=== PATIENT | male | born 1970 | race Caucasian/White ===

== ENCOUNTER 2024-07-22 10:41 | Emergency (ER) | payer SELFPAY ==
[2024-07-22] MEDS ORDERED: NA CHLORIDE 0.9% 1,000 ML ONE (12:09)
[2024-07-22 12:15] LABS: Absolute Eosinophils 0.1 K/uL (0-0.5); Absolute Lymphocytes (CBC) 1.6 K/uL (0.7-4.9); Absolute Monocytes 0.6 K/uL (0.1-1.3); Basophils % 0.3 % (0-1.3); Eosinophils % 0.8 % (0-4.4); Hematocrit 44.5 % (39.6-49.0); Hemoglobin 15.6 g/dL (13.6-17.9); Lymphocytes % 22.1 % (15.3-44.8); MCH 30.8 pg (27.0-35.0); MCV 87.9 fL (80-100); MPV 9.2 fL (7.6-11.3); Monocytes % 7.9 % (3.3-12.3); Neutrophils % 68.9 % (41.7-73.7); Nucleated Red Blood Cells % 0.1 % (0-0); Platelets 253 thou/uL (152-406); RBC Red Blood Cell Count 5.07 M/uL (4.33-5.43); Red Cell Distribution Width 13.2 % (12.1-15.2)
[2024-07-22 12:37] LABS: ALT/SGPT 30 U/L (16-61); Albumin 3.6 g/dL (3.4-5.0); Albumin/Globulin Ratio 0.9 (1.1-1.8); Alkaline Phosphatase 73 U/L (45-117); Anion Gap 16.2 mEq/L (5.0-15.0); BUN Blood Urea Nitrogen 26 mg/dL (7-18); Bicarbonate 22 mEq/L (21-32); Bilirubin Total 0.5 mg/dL (0.2-1.0); Globulin 3.8 g/dL (2.3-3.5); Glomerular Filtration Rate 88 ml/min (=/>90); Lipase 63 U/L (13-75); Potassium 4.2 mEq/L (3.5-5.1); Protein, Total 7.4 g/dL (6.4-8.2); Sodium Level 128 mEq/L (136-145)
[2024-07-22 12:38] LABS: AST/SGOT < 10 U/L (15-37)
[2024-07-22 12:40] LABS: Glucose Level 479 mg/dL (74-106)
[2024-07-22 13:19] LABS: Troponin High Sensitivity 10.4 pg/mL (<58.9)
[2024-07-22 13:22] LABS: Specific Gravity > 1.030 (1.005-1.030); Sqamous Epithelial None Seen /HPF (None Seen); Urine Bacteria None Seen /HPF (<20); Urine Bilirubin NEGATIVE (Negative); Urine Blood Negative (Negative); Urine Clarity Clear (Clear); Urine Color Colorless (Yellow); Urine Glucose 4+ (Over) (Negative); Urine Ketones 2+ (Negative); Urine Micro Reflex YN NO BILL MICROSCOPIC; Urine Mucus Slight /HPF (None Seen); Urine Nitrite NEGATIVE (Negative); Urine Protein NEGATIVE (Negative); Urine RBC <5 /HPF (None Seen); Urine Urobilinogen Normal (Normal); Urine WBC <5 /HPF (<5)
[2024-07-22] MEDS ORDERED: INSULIN REGULAR (HUMAN) 100 UNIT/ML ONE (13:28)
--- NOTE | 2024-07-22 15:00 | EDPHYS ---
Physician Documentation [facility] Name: Ike Garcia Age: 54 yrs Sex: Male : 1970 Arrival Date: 07/22/2024 Time: 10:41 Bed 2 Private MD: ED Physician Huber Deleon HPI: 07/22 11:57 This 54 yrs old Male presents to ER via Ambulatory with complaints of Weakness, sp3 Numbness - both feet. 11:57 54-year-old male with history of diabetes, hypertension, hyperlipidemia presents to the [facility] ED with generalized weakness and concerns about his blood sugar secondary to him stopping taking his medications because "they were bringing him down". Patient sees Dr. De La Paz as PCP. Patient states that he wants to get back on his medications. He denies any fever, headache, neck pain, chest pain, shortness of breath, abdominal pain, vomiting, diarrhea, or any other signs or symptoms on ROS at this time. He does endorse bilateral lower extremity numbness off and on which she has had for quite some time. No new symptoms from that standpoint.. Historical: - Allergies: 11:02 NKDA; iw - Home Meds: 11:02 None [Active]; iw - PMHx: 11:02 Hyperlipidemia; Diabetes - NIDDM; Hypertension; iw - PSHx: 11:02 None; iw - Immunization history:: Adult Immunizations not up to date. - Infectious Disease History:: Denies. - Social history:: Smoking status: Patient/guardian denies using tobacco, but has a distant history of tobacco abuse. ROS: 12:01 Constitutional: Negative for fever, chills, and weight loss, Eyes: Negative for injury, sp3 pain, redness, and discharge, ENT: Negative for injury, pain, and discharge, Neck: Negative for injury, pain, and swelling, Cardiovascular: Negative for chest pain, palpitations, and edema, Respiratory: Negative for shortness of breath, cough, wheezing, and pleuritic chest pain, Abdomen/GI: Negative for abdominal pain, nausea, vomiting, diarrhea, and constipation, Back: Negative for injury and pain, MS/Extremity: Negative for injury and deformity, Skin: Negative for injury, rash, and discoloration, Neuro: Negative for headache, weakness, numbness, tingling, and seizure, Psych: Negative for depression, anxiety, suicide ideation, homicidal ideation, and hallucinations, Allergy/Immunology: Negative for hives, rash, and allergies, Hematologic/Lymphatic: Negative for swollen nodes, abnormal bleeding, and unusual bruising, 12:01 All other systems are negative, Exam: 12:01 Constitutional: This is a well developed, well nourished patient who is awake, alert, sp3 and in no acute distress. Head/Face: Normocephalic, atraumatic. Eyes: Pupils equal round and reactive to light, extra-ocular motions intact. Lids and lashes normal. Conjunctiva and sclera are non-icteric and not injected. Cornea within normal limits. Periorbital areas with no swelling, redness, or edema. Neck: Trachea midline, no thyromegaly or masses palpated, and no cervical lymphadenopathy. Supple, full range of motion without nuchal rigidity, or vertebral point tenderness. No Meningismus. Chest/axilla: Normal chest wall appearance and motion. Nontender with no deformity. No lesions are appreciated. Cardiovascular: Regular rate and rhythm with a normal S1 and S2. No gallops, murmurs, or rubs. Normal PMI, no JVD. No pulse deficits. Respiratory: Lungs have equal breath sounds bilaterally, clear to auscultation and percussion. No rales, rhonchi or wheezes noted. No increased work of breathing, no retractions or nasal flaring. Abdomen/GI: Soft, non-tender, with normal bowel sounds. No distension or tympany. No guarding or rebound. No evidence of tenderness throughout. Back: No spinal tenderness. No costovertebral tenderness. Full range of motion. Skin: Warm, dry with normal turgor. Normal color with no rashes, no lesions, and no evidence of cellulitis. MS/ Extremity: Pulses equal, no cyanosis. Neurovascular intact. Full, normal range of motion. Neuro: Awake and alert, GCS 15, oriented to person, place, time, and situation. Cranial nerves II-XII grossly intact. Motor strength 5/5 in all extremities. Sensory grossly intact. Cerebellar exam normal. Normal gait. Psych: Awake, alert, with orientation to person, place and time. Behavior, mood, and affect are within normal limits. 15:01 ECG was reviewed by the Attending Physician. EKG demonstrates normal sinus rhythm at 70 sp3 bpm with normal intervals, PACs and sinus arrhythmia with nonspecific ST/T changes without evidence of acute ischemia. Vital Signs: 11:00 BP 166 / 92; Pulse 78; Resp 16; Temp 98.7; Pulse Ox 100% on R/A; Weight 84.37 kg; iw Height 6 ft. 0 in. ; 12:16 BP 122 / 86; Pulse 65; Resp 17; Pulse Ox 99% on R/A; ap3 15:18 BP 120 / 85; Pulse 78; Resp 17; Pulse Ox 96% ; ap3 11:00 Body Mass Index 25.23 (84.37 kg, 182.88 cm) iw MDM: 11:22 Medical Screening Exam initiated sp3 12:01 Data reviewed: vital signs, nurses notes, lab test result(s), radiologic studies. ED sp3 course: 54-year-old male with PMH above now with generalized weakness and hyperglycemia after stopping his medications. Differential diagnosis includes hyperglycemia, early DKA, dehydration, electrolyte abnormality, among others. Workup will include general labs, IV fluids and insulin as needed. Disposition pending workup and patient course.. 14:59 ED course: Blood sugar trending down we will safely discharge home at this time.. sp3 07/22 11:18 Order name: Glucose, Ancillary Testing; Complete Time: 12:02 EDMS 07/22 11:20 Order name: Glucose, Ancillary Testing ED[facility] 07/22 11:37 Order name: CBC with Diff; Complete Time: 13:15 sp3 07/22 11:37 Order name: CMP sp3 07/22 11:37 Order name: Lipase sp3 07/22 11:37 Order name: Lactate w/ 2H reflex if indic.; Complete Time: 13:15 sp3 07/22 11:37 Order name: UAM sp3 07/22 12:27 Order name: Troponin High Sensitivity ED[facility] 07/22 14:48 Order name: Glucose, Ancillary Testing ED[facility] 07/22 12:03 Order name: EKG; Complete Time: 12:03 sp3 07/22 11:37 Order name: IV Saline Lock; Complete Time: 12:05 sp3 07/22 11:37 Order name: Labs collected and sent; Complete Time: 12:05 sp3 07/22 12:03 Order name: EKG - Nurse/Tech; Complete Time: 12:36 sp3 07/22 14:24 Order name: Dre; Complete Time: 14:51 sp3 Administered Medications: 12:14 Drug: NS 0.9% IV 1000 ml IV at 1 bolus Per protocol; to be given as a bolus over 60 ap3 minutes Route: IV; Rate: 1 bolus; Site: left antecubital; 13:15 Follow up: IV Status: Completed infusion; IV Intake: 1000ml ap3 13:34 Drug: Insulin Regular Human IVP 10 units IVP once {Co-Signature: ph (Karishma Whitfield ap3 RN).} Route: IVP; Site: left antecubital; 15:19 Follow up: Response: No adverse reaction; Blood sugar is lowered ap3 Point of Care Testing: Blood Glucose: 11:14 Blood Glucose: 465 mg/dL; iw Ranges: Critical Glucose Levels:Adult <50 mg/dl or >400 mg/dl <40 mg/dl or >180 mg/dl Disposition Summary: 07/22/24 15:00 Discharge Ordered Notes: Location: Home sp3 Condition: Stable sp3 Diagnosis - Hyperglycemia, hypertension sp3 Followup: sp3 - With: Private Physician - When: Upon discharge from the Emergency Department - Reason: If symptoms return Discharge Instructions: - Discharge Summary Sheet sp3 - Hyperglycemia sp3 Forms: - Medication Reconciliation Form sp3 - Antibiotic Education sp3 - Prescription Opioid Use sp3 - Patient Portal Instructions sp3 - Leadership Thank You Letter sp3 Prescriptions: - Lisinopril 5 mg Oral Tablet - take 1 tablet ORAL route once daily; 20 tablet; Refills: 0, Product Selection sp3 Permitted - Metformin 1,000 mg Oral Tablet - take 1 tablet ORAL route every 12 hours with morning and evening meals; 20 sp3 tablet; Refills: 0, Product Selection Permitted Signatures: Dispatcher [employer] Areli Oakley RN RN iw Laurel Mckeon RN RN ap3 Huber Deleon MD MD sp3 Karishma Whitfield RN ph Corrections: (The following items were deleted from the chart) 11:03 11:02 Allergies: NKDA; iw iw 12:28 12:03 Troponin High Sensitivity+[id number].LAB.BRZ ordered. EDWY EDMS
--- NOTE | 2024-07-22 15:00 | ER ---
Nurse's Notes [facility] Name: Ike Garcia Age: 54 yrs Sex: Male : 1970 Arrival Date: 07/22/2024 Time: 10:41 Bed 2 Private MD: Diagnosis: Hyperglycemia, hypertension Presentation: 07/22 11:00 Chief complaint: Patient states: was on metformin and has been off of it for a couple iw months because he did not like the way it made me feel, now I have been losing weight and urinating a lot and I have numbness in my feet now. Coronavirus screen: At this time, the client does not indicate any symptoms associated with coronavirus-19. Ebola Screen: No symptoms or risks identified at this time. Initial Sepsis Screen: Does the patient meet any 2 criteria? No. Patient's initial sepsis screen is negative. Does the patient have a suspected source of infection? No. Patient's initial sepsis screen is negative. Risk Assessment: Do you want to hurt yourself or someone else? Patient reports no desire to harm self or others. Onset of symptoms was June 21, 2024. 11:00 Method Of Arrival: Ambulatory iw 11:00 Acuity: TRUDY 3 iw Historical: - Allergies: 11:02 NKDA; iw - Home Meds: 11:02 None [Active]; iw - PMHx: 11:02 Hyperlipidemia; Diabetes - NIDDM; Hypertension; iw - PSHx: 11:02 None; iw - Immunization history:: Adult Immunizations not up to date. - Infectious Disease History:: Denies. - Social history:: Smoking status: Patient/guardian denies using tobacco, but has a distant history of tobacco abuse. Screenin:[facility] ED Fall Risk Assessment (Adult) History of falling in the last 3 months, ap3 including since admission No falls in past 3 months (0 pts) Confusion or Disorientation No (0 pts) Intoxicated or Sedated No (0 pts) Impaired Gait No (0 pts) Mobility Assist Device Used No (0 pt) Altered Elimination No (0 pt) Score/Fall Risk Level 0 - 2 = Low Risk Oriented to surroundings, Maintained a safe environment, Educated pt \T\ family on fall prevention, incl call for assistance when getting out of bed, Assessed \T\ reinforced patient's understanding of fall precautions, Hourly rounding (assess needs \T\ fall precautionary measures) done, Used ambulatory aids as needed (educated on \T\ assisted with). Abuse screen: Denies threats or abuse. Nutritional screening: No deficits noted. Tuberculosis screening: No symptoms or risk factors identified. Assessment: 12:06 General: Appears in no apparent distress. Behavior is calm, cooperative, appropriate ap3 for age. Pain: Denies pain. Neuro: Level of Consciousness is awake, alert, obeys commands, Oriented to person, place, time, situation, Appropriate for age. Neuro: Reports weakness. Cardiovascular: Patient's skin is warm and dry. Respiratory: Airway is patent Respiratory effort is even, unlabored, Respiratory pattern is regular, symmetrical. Vital Signs: 11:00 BP 166 / 92; Pulse 78; Resp 16; Temp 98.7; Pulse Ox 100% on R/A; Weight 84.37 kg; iw Height 6 ft. 0 in. ; 12:16 BP 122 / 86; Pulse 65; Resp 17; Pulse Ox 99% on R/A; ap3 15:18 BP 120 / 85; Pulse 78; Resp 17; Pulse Ox 96% ; ap3 11:00 Body Mass Index 25.23 (84.37 kg, 182.88 cm) iw ED Course: 10:45 Patient arrived in ED. iw 10:46 Huber Deleon MD is Attending Physician. sp3 11:02 Triage completed. iw 11:03 Arm band placed on. iw 11:51 Karishma Whitfield, RN is Primary Nurse. ph 12:05 Initial lab(s) drawn, by me, sent to lab. Inserted saline lock: 20 gauge in left ap3 antecubital area, using aseptic technique. Blood collected. Flushed with 10 mL NS. 12:17 Patient has correct armband on for positive identification. Bed in low position. Call ap3 light in reach. Side rails up X 1. Client placed on continuous cardiac and pulse oximetry monitoring. NIBP monitoring applied. bus driver/monitor on. Pulse ox on. NIBP on. 12:45 EKG done, by ED staff, reviewed by Huber Deleon MD. kb4 15:19 Provided Education on: medications prior to administration . ap3 15:19 No provider procedures requiring assistance completed. ap3 15:24 IV discontinued, intact, bleeding controlled, No redness/swelling at site. Pressure ap3 dressing applied. Administered Medications: 12:14 Drug: NS 0.9% IV 1000 ml IV at 1 bolus Per protocol; to be given as a bolus over 60 ap3 minutes Route: IV; Rate: 1 bolus; Site: left antecubital; 13:15 Follow up: IV Status: Completed infusion; IV Intake: 1000ml ap3 13:34 Drug: Insulin Regular Human IVP 10 units IVP once {Co-Signature: ph (Karishma Whitfield ap3 RN).} Route: IVP; Site: left antecubital; 15:19 Follow up: Response: No adverse reaction; Blood sugar is lowered ap3 Medication: 15:19 VIS not applicable for this client. ap3 Point of Care Testing: Blood Glucose: 11:14 Blood Glucose: 465 mg/dL; iw Ranges: Intake: 13:15 IV: 1000ml; Total: 1000ml. ap3 Outcome: 15:00 Discharge ordered by . sp3 15:23 Discharged to home ambulatory, ap3 15:23 Condition: good 15:23 Discharge instructions given to patient, Instructed on discharge instructions, follow up and referral plans. medication usage, Demonstrated understanding of instructions, follow-up care, medications, Prescriptions given X 2, 15:24 Patient left the ED. ap3 Signatures: Areli Mata RN RN Karishma Whitfield RN RN ph Laurel Mckeon RN RN ap3 Huber Deleon MD MD sp3 Yi Posada kb4 Karishma Whitfield RN ph Corrections: (The following items were deleted from the chart) 11:02 11:00 BP 166 / 92; Pulse 78bpm; Resp 16bpm; Pulse Ox 100% RA; Temp 98.7F; 84.37 kg; iw 11:03 11:02 Allergies: NKDA; iw iw
[2024-07-22 15:39] VITALS: TEMP 98.7
[2024-07-22 15:50] VITALS: BP 120/85; O2SAT 96
== END 2024-07-22 15:24 | disposition home or self-care (01) ==
LOC: ER 10:41
DX: E11.65 Type 2 diabetes mellitus with hyperglycemia (principal); I10 Essential (primary) hypertension
CPT/HCPCS: 36415; 80053; 81001; 82947; 83605; 83690; 84484; 85025; 93005; J1815; J7030